=== PATIENT | male | born 1975 | race Caucasian/White ===

== ENCOUNTER 2022-07-03 19:16 | Emergency (ER) | payer BC ==
[~2022-07-03] VITALS: Ht 177.8 cm; Wt 72.6 kg
[2022-07-03 19:51] VITALS: BP 137/77
--- NOTE | 2022-07-03 21:08 | NUR ---
PT CALLED FROM [facility], PATIENT NOT FOUND.
== END 2022-07-03 21:08 | disposition left against medical advice (07) ==
LOC: MED 19:16
DX: F41.9 Anxiety disorder, unspecified (principal); Z53.21 Procedure and treatment not carried out due to patient leaving prior to being seen by health care provider